=== PATIENT | female | born 1965 | race Caucasian/White ===

== ENCOUNTER 2024-02-01 06:55 | Day surgery (SDC) | payer OTHER ==
[~2024-02-01] VITALS: Ht 165.1 cm; Wt 83.9 kg
[2024-02-01] MEDS ORDERED: fentaNYL CITRATE/PF 100 MCG/2 ML AMP ONE (07:15)
[2024-02-01] MEDS ORDERED: MIDAZOLAM HCL 5 MG/5 ML VIAL ONE ×2 (07:15→09:07)
[2024-02-01 08:35] VITALS: O2SAT 98
[2024-02-01 13:27] VITALS: BP_SYST 128; PULSE 58; RESP 18; TEMP 97.4
== END 2024-02-01 09:50 | disposition home or self-care (01) ==
LOC: SDS 06:55 → SMU 07:06 → SDS 09:50
PROVIDERS: ATTEND Internal Medicine
DX: R19.4 Change in bowel habit (principal); K29.50 Unspecified chronic gastritis without bleeding; R19.7 Diarrhea, unspecified; R10.9 Unspecified abdominal pain; R13.10 Dysphagia, unspecified; R14.0 Abdominal distension (gaseous); K21.9 Gastro-esophageal reflux disease without esophagitis; K76.0 Fatty (change of) liver, not elsewhere classified; K57.30 Diverticulosis of large intestine without perforation or abscess without bleeding; K64.8 Other hemorrhoids; Z86.010 Personal history of colon polyps
CPT/HCPCS: 45378; 43239; 99152; 87081; 36415; 82948; 88305; 88312; 88313; 99153; G0378; J2250; J3010